=== PATIENT | male | born 1980 | race Caucasian/White ===

== ENCOUNTER 2020-07-03 09:25 | Emergency (ER) | payer OTHER, SELFPAY ==
--- NOTE | 2020-07-03 10:26 | ED.MALEGU ---
HPI - Male Genitourinary General Chief complaint: Urogenital-Male Stated complaint: URINATING BLOOD CLOTS Time Seen by Provider: 07/03/20 09:43 Source: patient Mode of arrival: ambulatory Limitations: no limitations History of Present Illness MD Complaint: other (hematuria) Onset (ago): day(s) (2) Duration: intermittent Severity: moderate Quality: burning Relieving factors: none Exacerbating factors: none Context: other (s/p laser ablation on 06/12, removal of cath on 06/16, did not receive DDAVP prior to procedure) Related Data Previous Rx's Medication Instructions Recorded levofloxacin 500 mg PO DAILY #6 tab 07/03/20 tranexamic acid 650 mg tablet 1,300 mg PO Q6H 5 Days #40 tab 07/03/20 Allergies Allergy/AdvReac Type Severity Reaction Status Date / Time cephalexin [From KEFLEX] Allergy Unknown HIVES Verified 07/03/20 10:37 latex [LATEX] Allergy Unknown RASH Verified 07/03/20 10:37 aspirin [ASA] AdvReac Unknown Verified 07/03/20 10:37 Review of Systems Review of Systems: Constitutional : No Weight loss, No Fever, No Chills ENT/Mouth : No sore throat, No Rhinorrhea Eyes: No Swelling, No Redness Cardiovascular : No Chest Pain, No SOB, NoEdema Respiratory : No Cough, No Sputum, No Wheezing Gastrointestinal : no pain, no vomiting, no diarrhea Genitourinary : positive Dysuria, positive Urinary Frequency, positive hematuria Musculoskeletal : No joint pain, No Myalgias, No Joint Swelling Skin : No Skin Lesions, No rash Neuro : No Weakness, No Numbness, No Dizziness, No Headache Psych : No Anxiety/Panic, No Depression Heme/Lymph: No Bruising, No Lymphadenopathy Endocrine : No Polyuria, No Polydipsia All other systems reviewed and are negative. PENDING SALE TO [facility] Past Medical History Medical History (Updated 07/03/20 @ 12:51 by Eliane Amado DO) Enlarged prostate Surgical History (Updated 07/03/20 @ 10:35 by Eliane Amado DO) History of cholecystectomy [place] teeth extracted Social History Social History (Updated 07/03/20 @ 10:35 by Eliane Amado DO) Alcohol intake: never Smoking Status: Never smoker Use of substances other than those prescribed or required for medical reasons: No Advance Directives: No Advance Directives Information Provided: Yes Physical Exam Vital Signs and I&O and Narrative: Vital Signs and I&O: Vital Signs Temp 98.8 F 07/03/20 10:37 Pulse 76 07/03/20 10:37 Resp 16 07/03/20 10:37 BP 154/81 H 07/03/20 10:37 Pulse Ox 97 07/03/20 10:37 Intake & Output 07/02/20 07/03/20 07/03/20 18:59 06:59 18:59 Intake Total 1000 / 1000 Balance 1000 / 1000 Weight 105.233 kg Intake: Intake, IV Amoun t 1000 / 1000 0.9 % Sodium C hloride 1,000 ml 1000 / 1000 @ 999 mls/hr I VCONT .Q1H1M ROHINI Rx#:[id number] Body Mass Index 33.3 Appearance: Alert. Oriented X3. No acute distress. Eyes: Pupils equal, round and reactive to light. ENT: Pharynx normal. Neck: Normal inspection. Neck supple. CVS: Normal heart rate and rhythm. Pulses normal. Respiratory: No respiratory distress. Breath sounds normal. Abdomen: Soft and nontender. Skin: Skin warm and dry. Normal skin color. Normal skin turgor. Extremities: No lower extremity edema. No lower extremity edema. Neuro: Oriented X 3. No motor deficit. No sensory deficit. Course Reevaluation(s) Reevaluation #1: Dr. Krishnamurthy aware - aware of CT scan and UA Time: 12:50 Reevaluation #2: per Dr. Childress hold tranexamic acid give DDVAP 0.3mg/kg follow up with Urology MDM - Male Genitourinary MDM Narrative Medical decision making narrative: patient with von willebrands prior to laser ablation did not receive DDAVP here with 2 days of hematuria and clots, will need labs, UA, IVF, CT scan for any mass or stone, dispo per results and findings Lab Data Result diagrams: 07/03/20 10:53 07/03/20 10:53 Labs: Lab Results 07/03/20 07/03/20 07/03/20 Range/Units 10:53 10:53 10:53 WBC 9.1 (4.8-10.8) X10*3/uL RBC 5.14 (4.60-5.80) X10*6/uL Hgb 15.4 (14.0-18.0) g/dl Hct 45.1 (42-52) % MCV 87.7 (80-98) fL MCH 30.0 (27.0-33.0) pg MCHC 34.1 (31.0-36.0) g/dl RDW 12.4 (11.0-16.0) % Plt Count 451 H (160-400) X10*3/uL MPV 10.0 (9.4-12.4) fL Immature Gran % (Auto) 0.3 (0.0-0.4) % Neut % (Auto) 63.3 (45-73) % Lymph % (Auto) 24.5 (20-40) % [place] % (Auto) 8.8 (2-11) % Eos % (Auto) 2.6 (0-4) % Baso % (Auto) 0.5 (0-2) % Neut # (Auto) 5.8 (2.0-8.3) X10*3/uL Lymph # (Auto) 2.2 (1.2-4.9) X10*3/uL [place] # (Auto) 0.8 (0.1-1.2) X10*3/uL Eos # (Auto) 0.2 (0.0-0.4) X10*3/uL Baso # (Auto) 0.1 (0.0-0.2) X10*3/uL Abs Immat Gran (auto) 0.03 (0.00-0.03) X10*3/uL Absolute Nucleated RBC 0.000 (0.0-0.012) X10*3/uL Nucleated RBC % (auto) 0.0 (0.0-0.2) /100WBC PT 12.8 (10.8-13.0) SEC INR 1.1 (0.9-1.1) APTT 42.0 H (24.1-38.0) SEC Sodium 139 (135-145) mmol/L Potassium 4.2 (3.3-5.1) mmol/l Chloride 108 (96-108) mmol/L Carbon Dioxide 22 (22-29) mmol/L Anion Gap 13 (12-20) BUN 14 (9-16) mg/dL Creatinine 0.85 (0.5-1.4) mg/dL Estim Creat Clear Calc 138.9 Estimated GFR > 60 Random Glucose 194 H (60-115) mg/dL Calcium 9.4 (8.4-10.2) mg/dL Magnesium 2.2 (1.6-2.6) mg/dL Total Bilirubin 0.6 (0.0-1.0) mg/dL Direct Bilirubin 0.2 (0.0-0.5) mg/dL AST 28 (5-37) U/L ALT 37 (0-40) U/L Alkaline Phosphatase 80 (39-117) U/L Total Protein 7.3 (6.5-8.0) g/dL Albumin 4.5 (3.5-5.0) g/dL Urine Color Urine Appearance Urine pH (5.0-8.0) Ur Specific [place] (1.005-1.025) Urine Protein (NEG-TRACE) MG/DL Urine Glucose (UA) (NEG) MG/DL Urine Ketones (NEG) MG/DL Urine Blood (NEG) Urine Nitrite (NEG) Ur Leukocyte Esterase (NEG) Urine RBC (0) /HPF Urine WBC (0-4) /HPF Ur Squamous Epith Cells /LPF Urine Bacteria /LPF Urine Mucus /LPF 07/03/20 Range/Units 11:19 WBC (4.8-10.8) X10*3/uL RBC (4.60-5.80) X10*6/uL Hgb (14.0-18.0) g/dl Hct (42-52) % MCV (80-98) fL MCH (27.0-33.0) pg MCHC (31.0-36.0) g/dl RDW (11.0-16.0) % Plt Count (160-400) X10*3/uL MPV (9.4-12.4) fL Immature Gran % (Auto) (0.0-0.4) % Neut % (Auto) (45-73) % Lymph % (Auto) (20-40) % [place] % (Auto) (2-11) % Eos % (Auto) (0-4) % Baso % (Auto) (0-2) % Neut # (Auto) (2.0-8.3) X10*3/uL Lymph # (Auto) (1.2-4.9) X10*3/uL [place] # (Auto) (0.1-1.2) X10*3/uL Eos # (Auto) (0.0-0.4) X10*3/uL Baso # (Auto) (0.0-0.2) X10*3/uL Abs Immat Gran (auto) (0.00-0.03) X10*3/uL Absolute Nucleated RBC (0.0-0.012) X10*3/uL Nucleated RBC % (auto) (0.0-0.2) /100WBC PT (10.8-13.0) SEC INR (0.9-1.1) APTT (24.1-38.0) SEC Sodium (135-145) mmol/L Potassium (3.3-5.1) mmol/l Chloride (96-108) mmol/L Carbon Dioxide (22-29) mmol/L Anion Gap (12-20) BUN (9-16) mg/dL Creatinine (0.5-1.4) mg/dL Estim Creat Clear Calc Estimated GFR Random Glucose (60-115) mg/dL Calcium (8.4-10.2) mg/dL Magnesium (1.6-2.6) mg/dL Total Bilirubin (0.0-1.0) mg/dL Direct Bilirubin (0.0-0.5) mg/dL AST (5-37) U/L ALT (0-40) U/L Alkaline Phosphatase (39-117) U/L Total Protein (6.5-8.0) g/dL Albumin (3.5-5.0) g/dL Urine Color RED Urine Appearance TURBID Urine pH 6.5 (5.0-8.0) Ur Specific [place] 1.025 (1.005-1.025) Urine Protein 3+ H (NEG-TRACE) MG/DL Urine Glucose (UA) NEG (NEG) MG/DL Urine Ketones 5 (NEG) MG/DL Urine Blood 3+ H (NEG) Urine Nitrite POS H (NEG) Ur Leukocyte Esterase TRACE H (NEG) Urine RBC TNTC H (0) /HPF Urine WBC 30-49 H (0-4) /HPF Ur Squamous Epith Cells NONE /LPF Urine Bacteria NONE /LPF Urine Mucus 3+ /LPF Discharge Plan Discharge Clinical Impression: Von Willebrand disease, Hematuria, Urinary tract infection Patient Disposition: Home, Self-Care Instructions: Urinary Tract Infection in Men (ED), Hematuria (ED) Additional Instructions: if you cannot void or have severe pain please return immediately, do not exercise aggressively while on antibiotics Prescriptions: New levofloxacin 500 mg tablet 500 mg PO DAILY Qty: 6 RF: 0 No Action tranexamic acid 650 mg tablet 1,300 mg PO Q6H 5 Days Qty: 40 RF: 0 Referrals: Humberto Nelson III, MD [Physician] - 2 days (call for next appointment) Stand Alone Forms: Work/School Release
--- NOTE | 2020-07-03 10:32 | CT_ITS ---
EXAMINATION: CT ABDOMEN AND PELVIS WITHOUT CONTRAST CLINICAL INFORMATION: Hematuria COMPARISON: None TECHNIQUE: Multidetector volumetric imaging was performed from the superior aspect of the liver through the pubic symphysis. Sagittal and coronal reformatted images were obtained on the technologist's workstation. This CT examination was performed using dose optimization techniques as appropriate, variously including the following: *Automated exposure control *Adjustment of mA and/or kV according to patient size (this includes techniques or standardized protocols for targeted exams where dose is matched to indication/reason for exam; i.e. extremities or head) *Use of iterative reconstruction technique DLP: 805 mGy-cm FINDINGS: LUNG BASES: The visualized lung bases are unremarkable. LIVER, GALLBLADDER, AND BILIARY TREE: No focal hepatic lesion or biliary ductal dilatation is present. Gallbladder is not visualized. Question prior cholecystectomy. PANCREAS: Unremarkable. SPLEEN: Unremarkable. ADRENAL GLANDS: Unremarkable. KIDNEYS AND URETERS: The kidneys are normal in size, shape, and attenuation. No hydronephrosis, hydroureter, or calculi seen. No perinephric stranding. No suspicious lesions identified in this noncontrast study. BLADDER: Irregular soft tissue mass-like density, Hounsfield measurements 51, with ill-defined margins, along the posterior aspect of the bladder. This measures approximately 2.9 cm AP, 5.1 cm transverse, 3.0 cm craniocaudal. GASTROINTESTINAL TRACT: The small and large bowel are unremarkable. The appendix is unremarkable. Stomach contains luminal contents limiting evaluation. No free fluid. No free air. ABDOMINAL WALL: Small fat-containing umbilical hernia. LYMPH NODES: No pathologically enlarged lymph nodes are seen. VASCULAR: Normal caliber aorta. PELVIC VISCERA: Prostate measures 4.0 cm transverse. OSSEOUS STRUCTURES: No acute or suspicious osseous abnormality. IMPRESSION: Soft tissue density with irregular ill-defined margins within the posterior aspect of the urinary bladder. This measures approximately 2.9 x 5.1 x 3.0 cm. Differential consideration includes neoplasm. Intraluminal contents from other etiologies such as blood products, complex contents can potentially have this appearance. Further evaluation is needed.
[2020-07-03 10:37] VITALS: BP 154/81; PULSE 76; RESP 16; TEMP 37.1; O2SAT 97; BMI 33.3
[2020-07-03 10:58] LABS: MANUAL DIFF FLAG NO
[2020-07-03 11:02] LABS: Basophils Absolute Auto 0.1 X10*3/uL (0.0-0.2); Basophils Percent Auto 0.5 % (0-2); Eosinophils Absolute Auto 0.2 X10*3/uL (0.0-0.4); Eosinophils Percent Auto 2.6 % (0-4); Hematocrit 45.1 % (42-52); Hemoglobin 15.4 g/dl (14.0-18.0); Imm Gran Abs Auto 0.03 X10*3/uL (0.00-0.03); Imm Gran Pct Auto 0.3 % (0.0-0.4); Lymphocytes Absolute Auto 2.2 X10*3/uL (1.2-4.9); Lymphocytes Percent Auto 24.5 % (20-40); Mean Corpuscular HGB Conc 34.1 g/dl (31.0-36.0); Mean Corpuscular Volume 87.7 fL (80-98); Monocytes Absolute Auto 0.8 X10*3/uL (0.1-1.2); Monocytes Percent Auto 8.8 % (2-11); Neutrophils Absolute Auto 5.8 X10*3/uL (2.0-8.3); Neutrophils Percent Auto 63.3 % (45-73); Platelet Count 451 X10*3/uL (160-400); Red Blood Count 5.14 X10*6/uL (4.60-5.80); Red Cell Distribution Width 12.4 % (11.0-16.0); White Blood Count 9.1 X10*3/uL (4.8-10.8)
[2020-07-03 11:12] LABS: INTERNATIONAL NORM RATIO 1.1 (0.9-1.1); Prothrombin Time 12.8 SEC (10.8-13.0)
[2020-07-03] MEDS: 0.9 % Sodium Chloride 1,000 ML 999 ML IVCONT (11:17)
[2020-07-03 11:40] LABS: Alanine Aminotransferase 37 U/L (0-40); Albumin Level 4.5 g/dL (3.5-5.0); Alkaline Phosphatase 80 U/L (39-117); Anion Gap 13 (12-20); Aspartate Amino Transferase 28 U/L (5-37); Bilirubin Direct 0.2 mg/dL (0.0-0.5); Bilirubin Total 0.6 mg/dL (0.0-1.0); Blood Urea Nitrogen 14 mg/dL (9-16); Calcium 9.4 mg/dL (8.4-10.2); Carbon Dioxide 22 mmol/L (22-29); Chloride 108 mmol/L (96-108); Creatinine Clr Calc Pharmacy 138.9; Estimated Glomerular Filt Rate > 60; Glucose Random 194 mg/dL (60-115); Magnesium 2.2 mg/dL (1.6-2.6); Potassium 4.2 mmol/l (3.3-5.1); Sodium 139 mmol/L (135-145); Total Protein 7.3 g/dL (6.5-8.0)
[2020-07-03 11:40] LABS: Glucose Urine UA NEG (NEG); Leukocyte Esterase Urine TRACE (NEG); Nitrite Urine POS (NEG); Specific Gravity - Urine 1.025 (1.005-1.025); Urine Blood 3+ (NEG); Urine Ketones 5 MG/DL (NEG); Urine Protein 3+ MG/DL (NEG-TRACE)
[2020-07-03 11:47] LABS: Appearance Urine TURBID; Color Urine RED
[2020-07-03 11:48] LABS: PH 6.5 (5.0-8.0)
[2020-07-03 12:00] VITALS: BP 128/69; PULSE 64
[2020-07-03 12:01] LABS: RBC Urine TNTC /HPF (0); WBC Urine 30-49 /HPF (0-4)
[2020-07-03 12:02] LABS: Mucus Urine 3+ /LPF
[2020-07-03] MEDS: levoFLOXacin/D5W 500 MG/100 ML PIGGYBACK 100 MG IV (12:40)
[2020-07-03 13:09] LABS: Lactic Acid 1.4 mmol/L (0.5-2.0)
[2020-07-03 14:00] VITALS: BP 125/73; PULSE 73
[2020-07-03] MEDS: Desmopressin Acetate 20 MCG in 0.9 % Sodium Chloride 50 ML 100 MCG IV (14:11)
== END 2020-07-03 15:37 | disposition home or self-care (01) ==
PROVIDERS: Emergency Provider Emergency Medicine; PCP Family Medicine
DX: D68.0 Von Willebrand disease (principal); N39.0 Urinary tract infection, site not specified; R31.9 Hematuria, unspecified
CPT/HCPCS: 36415; 74176; 80048; 80076; 81001; 83605; 83735; 85025; 85610; 85730; 87040; 87086; 96361; 96365; 96366; 96367; 99284; J1956; J2597

== ENCOUNTER → 2020-07-05 13:26 | Outpatient (BNVA) | payer OTHER, SELFPAY | PROVIDERS: PCP Family Medicine; Visit Provider Urology | DX: N40.1 Benign prostatic hyperplasia with lower urinary tract symptoms (principal); N13.8 Other obstructive and reflux uropathy; N39.41 Urge incontinence; Z79.899 Other long term (current) drug therapy | CPT/HCPCS: 51798; 99024 ==

== ENCOUNTER → 2024-05-25 14:17 | Outpatient (RCR) | payer OTHER, SELFPAY ==
[2020-07-19 10:35] VITALS: BP 124/65; PULSE 76; RESP 18; TEMP 36.6; O2SAT 97
[2020-07-19 10:37] VITALS: BMI 33.2
[2020-07-19 11:51] LABS: MANUAL DIFF FLAG NO
[2020-07-19 12:02] LABS: Basophils Absolute Auto 0.1 X10*3/uL (0.0-0.2); Basophils Percent Auto 0.7 % (0-2); Eosinophils Absolute Auto 0.4 X10*3/uL (0.0-0.4); Eosinophils Percent Auto 4.7 % (0-4); Hematocrit 40.2 % (42-52); Hemoglobin 13.2 g/dl (14.0-18.0); Imm Gran Abs Auto 0.01 X10*3/uL (0.00-0.03); Imm Gran Pct Auto 0.1 % (0.0-0.4); Lymphocytes Absolute Auto 2.1 X10*3/uL (1.2-4.9); Lymphocytes Percent Auto 28.5 % (20-40); Mean Corpuscular HGB Conc 32.8 g/dl (31.0-36.0); Mean Corpuscular Hemoglobin 29.7 pg (27.0-33.0); Mean Corpuscular Volume 90.3 fL (80-98); Mean Platelet Volume 10.1 fL (9.4-12.4); Monocytes Absolute Auto 0.7 X10*3/uL (0.1-1.2); Monocytes Percent Auto 9.6 % (2-11); Neutrophils Absolute Auto 4.2 X10*3/uL (2.0-8.3); Neutrophils Percent Auto 56.4 % (45-73); Platelet Count 407 X10*3/uL (160-400); Red Blood Count 4.45 X10*6/uL (4.60-5.80); Red Cell Distribution Width 13.1 % (11.0-16.0); White Blood Count 7.4 X10*3/uL (4.8-10.8)
--- NOTE | 2020-07-19 12:27 | P.CNHO_ITS ---
Subjective - Subjective Chief complaint: Consult for hematuria. History of von Willebrand's disease. Patient: new to practice Requesting Physician: Guera Ferro. Primary Care Provider: Yenny Ferro MD Medical Summary: DIAGNOSIS: 1. HEMATURIA. 2. VON WILLEBRAND'S DISEASE. HPI - Consult Narrative Reason for consult: HEMATURIA. VON WILLEBRANDS. Narrative: Johann Son is a 40 year old man who initially presented to Dr. Garcia for urge incontinence. He was diagnosed with BPH. He had a Laser procedure done on 06/12. According to him he did mention a history of BPH and that he required DDAVP pr ior to procedures. He thought he received it. He then developed hematuria. he had the Haq in for the 1st week or so. he thought that was normal. However a couple of weeks ago he noticed that the bleeding worse persistent and he was passing big clots. On July 03 he went to the emergency room. Here his labs revealed: CBC: WBC 9.1/HGB 15.4/HCT 45/PLT 451. UA revealed 3+ blood. The case was discussed with Dr. Childress. He was given a dose of DDAVP. He was sent home on tranexamic acid 1300 mg q.6 hours for 5 days. With that the bleeding did slow down. However he is worried because his med ran out and the insurance would not cover it. He tells me a at the age of 4 he threw up blood. Subsequently he had nose bleeds through adolescent years. He was then diagnosed with von Willebrand's disease. Since then he is supposed to get DDAVP prior to any procedures. His mom was checked and she was positive. Review of Systems - Constitutional Reports no additional constitutional complaints, Reports fatigue - Eyes Reports no additional eye complaints - ENT Reports no additional ear, nose, mouth, and throat complaints - Cardiovascular Reports no additional cardiovascular complaints, Reports shortness of breath - Respiratory Reports no additional respiratory complaints, Reports dyspnea - Gastrointestinal Reports no additional gastrointestinal complaints, Reports abdominal pain - Genitourinary Genitourinary: Reports no additional male genitourinary complaints, Denies blood in urine - Musculoskeletal Reports no additional musculoskeletal complaints, Reports joint pain - Integumentary/Breasts Skin/Breast: Reports no additional skin complaints - Neurologic Reports no additional neurologic complaints - Endocrine Reports no additional endocrine complaints - Hematologic/Lymphatic Reports no additional hematologic/lymphatic complaints - Allergic/Immunologic Reports no additional allergic/immunologic complaints [facility] Medical History: Medical History (Last Updated 07/22/20 @ 15:42 by Daja Biggs MD) Enlarged prostate Hematuria Patient : No Surgical History: Surgical History (Last Updated 07/22/20 @ 15:42 by Daja Biggs MD) History of cholecystectomy [place] teeth extracted Home Medications and Allergies Allergies Allergy/AdvReac Type Severity Reaction Status Date / Time cephalexin [From KEFLEX] Allergy Unknown HIVES Verified 07/03/20 10:37 latex [LATEX] Allergy Unknown RASH Verified 07/03/20 10:37 aspirin [ASA] AdvReac Unknown Verified 07/03/20 10:37 Physical Exam Vital signs: Vital Signs Temp 97.8 F 07/19/20 10:35 Pulse 76 07/19/20 10:35 Resp 18 07/19/20 10:35 BP 124/65 07/19/20 10:35 Pulse Ox 97 07/19/20 10:35 Intake & Output 07/18/20 07/19/20 07/19/20 18:59 06:59 18:59 Other: Weight 105 kg Weight 105 kg - Constitutional Present: mild distress - Routine HEENT Exam Head: Present: normal inspection ENT: Present: mucous membranes moist - Routine Neck Exam Present: supple - Routine Respiratory Exam Present: CTAB - Routine Cardiovascular Exam Cardiovascular: Present: RRR, S1, S2 - Routine Abdominal Exam Present: soft, nontender - Routine Extremities Exam Present: nontender - Routine Skin Exam Present: intact - Routine Neurological Exam Present: alert, oriented X3, moving all extremities - Detailed Neurological Exam: Coma Scale Eye Opening: Spontaneous (4) Verbal Response: Oriented (5) - Routine Psychiatric Exam Present: agitated Hem/Onc Consult Result - Labs CBC & Chem 7: 07/19/20 11:35 07/19/20 11:35 Labs: Short CBC 07/19/20 Range/Units 11:35 WBC 7.4 (4.8-10.8) X10*3/uL Hgb 13.2 L (14.0-18.0) g/dl Hct 40.2 L (42-52) % Plt Count 407 H (160-400) X10*3/uL Assessment and Plan (1) Von Willebrands disease Status: Acute This is a 40-year-old gentleman with a history of von Willebrand's disease. He underwent laser procedure on his prostate on June 12, without D DDAVP cover. Subsequently had issues with hematuria. this persisted and actually got got worse to couple of weeks ago, with him passing dark red big blood clots. He came to the emergency room July 03 was given a dose of DDAVP. tranexamic acid was ordered. He took a 5 days course. with that the bleeding was controlled. However he is worried, what if the bleeding started again since he does not have any more. PLAN: I called his pharmacy. He can olive picker the prescription tommorrow. I told him he can call us in case he develops hematuria, so I can arrange for the DDaVP. He will keep me posted. Meanwhile I will check the Von Willebrands Profile, to confirm the diagnosis and see what type he has. he will return in one month for a follow up visit. Thanks, Addendum: PT: 12.4. PTT: 30.8. RCA: <20. F VIII Activity: 51. F VIII Antigen:32. CC: Dr. Ferro. Dr. Garcia. (2) Von Willebrand disease Status: Acute
[2020-07-19 12:33] LABS: Alanine Aminotransferase 34 U/L (0-40); Albumin Level 4.3 g/dL (3.5-5.0); Alkaline Phosphatase 75 U/L (39-117); Anion Gap 11 (12-20); Aspartate Amino Transferase 19 U/L (5-37); Bilirubin Total 0.5 mg/dL (0.0-1.0); Blood Urea Nitrogen 15 mg/dL (9-16); Calcium 9.2 mg/dL (8.4-10.2); Carbon Dioxide 25 mmol/L (22-29); Chloride 109 mmol/L (96-108); Creatinine Clr Calc Pharmacy 147.4; Estimated Glomerular Filt Rate > 60; Glucose Random 117 mg/dL (60-115); Potassium 4.4 mmol/l (3.3-5.1); Sodium 141 mmol/L (135-145); Total Protein 6.6 g/dL (6.5-8.0)
[2020-07-19 12:35] LABS: Prothrombin Time 12.4 SEC (10.8-13.0)
[2020-07-19 12:38] LABS: Partial Thromboplastin Time 39.8 SEC (24.1-38.0)
--- NOTE | 2020-07-19 13:58 | MHC.HEMONC ---
pt here for Consultation with Dr Biggs re: bleeding post procedure (laser ablation of the prostate). He has h/o Von Willebrands. Labs ordered and to be reviewed by Dr Biggs. He will f/u in August. Marsha BAILON to work on PA for his Tranexmic Acid.
[2020-07-20 12:37] LABS: Factor VIII Activity 51 % normal (50-180); Ristocetin Cofactor <20 % NORMAL (42-200); Von Willebrand Factor Antigen 32 % (50-217)
--- NOTE | 2020-08-30 08:59 | P.PNHO_ITS ---
Medical Summary - Medical Summary Date of Service: 08/30/20 Medical Summary: DIAGNOSIS: 1. HEMATURIA. 2. VON WILLEBRAND'S DISEASE. Interval History Interval history: Johann Son is a 40 year old man who initially presented to Dr. Garcia for urge incontinence. He was diagnosed with BPH. He had a Laser procedure done on 06/12. According to him he did mention a history of BPH and that he required DDAVP prior to procedures. He thought he received it. He then developed hematuria. he had the Haq in for the 1st week or so. he thought that was normal. However a couple of weeks ago he noticed that the bleeding worse persistent and he was passing big clots. On July 03 he went to the emergency room. Here his labs revealed: CBC: WBC 9.1/HGB 15.4/HCT 45/PLT 451. UA revealed 3+ blood. The case was discussed with Dr. Childress. He was given a dose of DDAVP. He was sent home on tranexamic acid 1300 mg q.6 hours for 5 days. With that the bleeding did slow down. However he is worried because his med ran out and the insurance would not cover it. He tells me a at the age of 4 he threw up blood. Subsequently he had nose bleeds through adolescent years. He was then diagnosed with von Willebrand's disease. Since then he is supposed to get DDAVP prior to any procedures. His mom was checked and she was positive. Review of Systems - Neurologic Reports no additional neurologic complaints PMFSH Medical History: Medical History (Last Updated 07/22/20 @ 15:42 by Daja Biggs MD) Enlarged prostate Hematuria Surgical History: Surgical History (Last Updated 07/22/20 @ 15:42 by Daja Biggs MD) History of cholecystectomy [place] teeth extracted Home Medications and Allergies Home Medications Medication Instructions Recorded Confirmed Type atorvastatin 80 mg PO DAILY 08/30/20 08/30/20 History cholecalciferol (vitamin D3) 100 mcg PO DAILY 08/30/20 08/30/20 History [Vitamin D3] dulaglutide [Trulicity] 0.75 mg SUBCUT QWEEK 08/30/20 08/30/20 History metformin 1,000 mg PO BID 08/30/20 08/30/20 History oxybutynin chloride 15 mg PO DAILY 08/30/20 08/30/20 History tranexamic acid 1 mg PO DAILY 08/30/20 08/30/20 History Allergies Allergy/AdvReac Type Severity Reaction Status Date / Time cephalexin [From KEFLEX] Allergy Unknown HIVES Verified 08/30/20 08:53 latex [LATEX] Allergy Unknown RASH Verified 08/30/20 08:53 aspirin [ASA] AdvReac Unknown Verified 08/30/20 08:53 Exam Vital signs: Vital Signs Temp 97.8 F 07/19/20 10:35 Pulse 76 07/19/20 10:35 Resp 18 07/19/20 10:35 BP 124/65 07/19/20 10:35 Pulse Ox 97 07/19/20 10:35 Weight 105 kg Body Mass Index 33.2 - Constitutional Present: mild distress - Routine HEENT Exam Head: Present: normal inspection - Routine Respiratory Exam Present: CTAB - Routine Cardiovascular Exam Cardiovascular: Present: RRR, S1, S2 - Routine Abdominal Exam Present: soft, nontender - Routine Extremities Exam Present: nontender - Routine Skin Exam Present: intact - Routine Neurological Exam Present: alert, oriented X3, moving all extremities - Detailed Neurological Exam: Coma Scale Eye Opening: Spontaneous (4) Data - Labs CBC & Chem 7: 07/19/20 11:35 07/19/20 11:35 Labs: 07/19/20 11:35 Complete Blood Count Auto Diff Routine Comprehensive Met. Panel Routine Factor 8 Prof (von Willebrand) Routine PTT [Partial Thromboplastin Time] Routine Prothrombin Time INR Routine Laboratory Last Values WBC 7.4 X10*3/uL (4.8-10.8) 07/19/20 11:35 RBC 4.45 X10*6/uL (4.60-5.80) L 07/19/20 11:35 Hgb 13.2 g/dl (14.0-18.0) L 07/19/20 11:35 Hct 40.2 % (42-52) L 07/19/20 11:35 MCV 90.3 fL (80-98) 07/19/20 11:35 MCH 29.7 pg (27.0-33.0) 07/19/20 11:35 MCHC 32.8 g/dl (31.0-36.0) 07/19/20 11:35 RDW 13.1 % (11.0-16.0) 07/19/20 11:35 Plt Count 407 X10*3/uL (160-400) H 07/19/20 11:35 MPV 10.1 fL (9.4-12.4) 07/19/20 11:35 Immature Gran % (Auto) 0.1 % (0.0-0.4) 07/19/20 11:35 Neut % (Auto) 56.4 % (45-73) 07/19/20 11:35 Lymph % (Auto) 28.5 % (20-40) 07/19/20 11:35 [place] % (Auto) 9.6 % (2-11) 07/19/20 11:35 Eos % (Auto) 4.7 % (0-4) H 07/19/20 11:35 Baso % (Auto) 0.7 % (0-2) 07/19/20 11:35 Lymph # (Auto) 2.1 X10*3/uL (1.2-4.9) 07/19/20 11:35 [place] # (Auto) 0.7 X10*3/uL (0.1-1.2) 07/19/20 11:35 Eos # (Auto) 0.4 X10*3/uL (0.0-0.4) 07/19/20 11:35 Baso # (Auto) 0.1 X10*3/uL (0.0-0.2) 07/19/20 11:35 Abs Immat Gran (auto) 0.01 X10*3/uL (0.00-0.03) 07/19/20 11:35 Absolute Neuts (auto) 4.2 X10*3/uL (2.0-8.3) 07/19/20 11:35 Absolute Nucleated RBC 0.000 X10*3/uL (0.0-0.012) 07/19/20 11:35 Nucleated RBC % (auto) 0.0 /100WBC (0.0-0.2) 07/19/20 11:35 PT 12.4 SEC (10.8-13.0) 07/19/20 11:35 INR 1.0 (0.9-1.1) 07/19/20 11:35 APTT 39.8 SEC (24.1-38.0) H 07/19/20 11:35 vWF VIII Activity 51 % normal (50-180) 07/19/20 11:35 von Willebrand Antigen 32 % (50-217) L 07/19/20 11:35 vWF Multimeric Antigen see note 07/19/20 11:35 Ristocetin Cofac Assay <20 % NORMAL (42-200) L 07/19/20 11:35 Sodium 141 mmol/L (135-145) 07/19/20 11:35 Potassium 4.4 mmol/l (3.3-5.1) 07/19/20 11:35 Chloride 109 mmol/L (96-108) H 07/19/20 11:35 Carbon Dioxide 25 mmol/L (22-29) 07/19/20 11:35 Anion Gap 11 (12-20) L 07/19/20 11:35 BUN 15 mg/dL (9-16) 07/19/20 11:35 Creatinine 0.80 mg/dL (0.5-1.4) 07/19/20 11:35 Estim Creat Clear Calc 147.4 07/19/20 11:35 Estimated GFR > 60 07/19/20 11:35 Random Glucose 117 mg/dL (60-115) H D 07/19/20 11:35 Calcium 9.2 mg/dL (8.4-10.2) 07/19/20 11:35 Total Bilirubin 0.5 mg/dL (0.0-1.0) 07/19/20 11:35 AST 19 U/L (5-37) 07/19/20 11:35 ALT 34 U/L (0-40) 07/19/20 11:35 Alkaline Phosphatase 75 U/L (39-117) 07/19/20 11:35 Total Protein 6.6 g/dL (6.5-8.0) 07/19/20 11:35 Albumin 4.3 g/dL (3.5-5.0) 07/19/20 11:35 Progress Note: A/P (1) Von Willebrands disease Status: Acute Assessment and plan: This is a 40-year-old gentleman with a history of von Willebrand's disease. He underwent laser procedure on his prostate on June 12, without D DDAVP cover. Subsequently had issues with hematuria. this persisted and actually got got worse to couple of weeks ago, with him passing dark red big blood clots. He came to the emergency room July 03 was given a dose of DDAVP. tranexamic acid was ordered. He took a 5 days course. with that the bleeding was controlled. However he is worried, what if the bleeding started again since he does not have any more. PLAN: I called his pharmacy. He can pickling solution maker the prescription tommorrow. I told him he can call us in case he develops hematuria, so I can arrange for the DDaVP. He will keep me posted. Meanwhile I will check the Von Willebrands Profile, to confirm the diagnosis and see what type he has. he will return in one month for a follow up visit. Thanks, Addendum: PT: 12.4. PTT: 30.8. RCA: <20. F VIII Activity: 51. F VIII Antigen:32. CC: Dr. Ferro. Dr. Garcia. (2) Von Willebrand disease Status: Acute - Time Spent With Patient Total time spent is greater than 50% in coordination of care (as documented) at patient's floor/unit and/or counseling patient:
--- NOTE | 2020-08-30 09:06 | P.PNHO_ITS ---
[facility] Telehealth - Telehealth Location of Provider rendering services: HEM/[facility] OFFICE. Patient Identification confirmed using: Name, : Yes Patient verbally consented to billing insurance company: Yes Patient informed of any privacy concerns related to visit: Yes Medical Summary - Medical Summary Date of Service: 08/30/20 Medical Summary: DIAGNOSIS: 1. HEMATURIA. 2. VON WILLEBRAND'S DISEASE. Interval History Interval history: Johann Son is a 40 year old man who initially presented to Dr. Garcia for urge incontinence. He was diagnosed with BPH. He had a Laser procedure done on 06/12. According to him he did mention a history of BPH and that he required DDAVP prior to procedures. He thought he received it. He then developed hematuria. He had the Haq in for the 1st week or so. He thought that was normal. However a couple of weeks ago he noticed that the bleeding worse persistent and he was passing big clots. On July 03 he went to the emergency room. Here his labs revealed: CBC: WBC 9.1/HGB 15.4/HCT 45/PLT 451. UA revealed 3+ blood. The case was discussed with Dr. Childress. He was given a dose of DDAVP. He was sent home on Tranexamic acid 1300 mg q.6 hours for 5 days. With that the bleeding did slow down. However he is worried because his med ran out and the insurance would not cover it. I had a tele health visit with him today. He tells me that he still has the hematuria. He is okay for one day and then it starts back up. He has been passing clots. He denies any abdominal nor flank pain. No dysuria. He denies any fever nor chills. No chest pain or trouble breathing. No abdominal pain nausea vomiting heartburn indigestion. His bowels are working without any gross blood in it. He enjoys a good appetite. He has gained weight. He is in good spirits. Rest of the review of systems is unremarkable. His insurance has been covering only 5 days of the Tranexamic Acid. The b leeding would slow down but then would start back up after the 5 days are over. PREVIOUS HISTORY: He tells me a at the age of 4 he threw up blood. Subsequently he had nose bleeds through adolescent years. He was then diagnosed with von Willebrand's disease. Since then he is supposed to get DDAVP prior to any procedures. His mom was checked and she was positive. Review of Systems - Constitutional Reports no additional constitutional complaints, Reports fatigue, Denies fever(s) - Eyes Reports no additional eye complaints - ENT Reports no additional ear, nose, mouth, and throat complaints - Cardiovascular Reports no additional cardiovascular complaints - Respiratory Reports no additional respiratory complaints - Gastrointestinal Reports no additional gastrointestinal complaints - Genitourinary Genitourinary: Reports no additional male genitourinary complaints Comments: hematuria with passage of clots - Musculoskeletal Reports no additional musculoskeletal complaints, Reports body aches, Reports joint pain - Integumentary/Breasts Skin/Breast: Reports no additional skin complaints - Neurologic Reports no additional neurologic complaints - Psychiatric Reports no additional psychiatric complaints, Reports anxiety - Endocrine Reports no additional endocrine complaints - Hematologic/Lymphatic Reports no additional hematologic/lymphatic complaints - Allergic/Immunologic Reports no additional allergic/immunologic complaints Home Medications and Allergies Home Medications Medication Instructions Recorded Confirmed Type atorvastatin 80 mg PO DAILY 08/30/20 08/30/20 History cholecalciferol (vitamin D3) 100 mcg PO DAILY 08/30/20 08/30/20 History [Vitamin D3] dulaglutide [Trulicity] 0.75 mg SUBCUT QWEEK 08/30/20 08/30/20 History famotidine 40 mg PO BID 08/30/20 08/30/20 History metformin 1,000 mg PO BID 08/30/20 08/30/20 History oxybutynin chloride 15 mg PO DAILY 08/30/20 08/30/20 History tranexamic acid 1 mg PO DAILY 08/30/20 08/30/20 History Allergies Allergy/AdvReac Type Severity Reaction Status Date / Time cephalexin [From KEFLEX] Allergy Unknown HIVES Verified 08/30/20 08:53 latex [LATEX] Allergy Unknown RASH Verified 08/30/20 08:53 aspirin [ASA] AdvReac Unknown Verified 08/30/20 08:53 Exam Vital signs: Vital Signs Temp 97.8 F 07/19/20 10:35 Pulse 76 07/19/20 10:35 Resp 18 07/19/20 10:35 BP 124/65 07/19/20 10:35 Pulse Ox 97 07/19/20 10:35 Weight 105 kg Body Mass Index 33.2 - Constitutional Present: mild distress - Routine HEENT Exam Head: Present: normal inspection - Routine Respiratory Exam Present: CTAB - Routine Cardiovascular Exam Cardiovascular: Present: RRR, S1, S2 - Routine Abdominal Exam Present: soft, nontender - Routine Extremities Exam Present: nontender - Routine Skin Exam Present: intact - Routine Neurological Exam Present: alert, oriented X3, moving all extremities - Detailed Neurological Exam: Coma Scale Eye Opening: Spontaneous (4) Data - Labs CBC & Chem 7: 07/19/20 11:35 07/19/20 11:35 Labs: 07/19/20 11:35 Complete Blood Count Auto Diff Routine Comprehensive Met. Panel Routine Factor 8 Prof (von Willebrand) Routine PTT [Partial Thromboplastin Time] Routine Prothrombin Time INR Routine Laboratory Last Values WBC 7.4 X10*3/uL (4.8-10.8) 07/19/20 11:35 RBC 4.45 X10*6/uL (4.60-5.80) L 07/19/20 11:35 Hgb 13.2 g/dl (14.0-18.0) L 07/19/20 11:35 Hct 40.2 % (42-52) L 07/19/20 11:35 MCV 90.3 fL (80-98) 07/19/20 11:35 MCH 29.7 pg (27.0-33.0) 07/19/20 11:35 MCHC 32.8 g/dl (31.0-36.0) 07/19/20 11:35 RDW 13.1 % (11.0-16.0) 07/19/20 11:35 Plt Count 407 X10*3/uL (160-400) H 07/19/20 11:35 MPV 10.1 fL (9.4-12.4) 07/19/20 11:35 Immature Gran % (Auto) 0.1 % (0.0-0.4) 07/19/20 11:35 Neut % (Auto) 56.4 % (45-73) 07/19/20 11:35 Lymph % (Auto) 28.5 % (20-40) 07/19/20 11:35 Hodgeman % (Auto) 9.6 % (2-11) 07/19/20 11:35 Eos % (Auto) 4.7 % (0-4) H 07/19/20 11:35 Baso % (Auto) 0.7 % (0-2) 07/19/20 11:35 Lymph # (Auto) 2.1 X10*3/uL (1.2-4.9) 07/19/20 11:35 Hodgeman # (Auto) 0.7 X10*3/uL (0.1-1.2) 07/19/20 11:35 Eos # (Auto) 0.4 X10*3/uL (0.0-0.4) 07/19/20 11:35 Baso # (Auto) 0.1 X10*3/uL (0.0-0.2) 07/19/20 11:35 Abs Immat Gran (auto) 0.01 X10*3/uL (0.00-0.03) 07/19/20 11:35 Absolute Neuts (auto) 4.2 X10*3/uL (2.0-8.3) 07/19/20 11:35 Absolute Nucleated RBC 0.000 X10*3/uL (0.0-0.012) 07/19/20 11:35 Nucleated RBC % (auto) 0.0 /100WBC (0.0-0.2) 07/19/20 11:35 PT 12.4 SEC (10.8-13.0) 07/19/20 11:35 INR 1.0 (0.9-1.1) 07/19/20 11:35 APTT 39.8 SEC (24.1-38.0) H 07/19/20 11:35 vWF VIII Activity 51 % normal (50-180) 07/19/20 11:35 von Willebrand Antigen 32 % (50-217) L 07/19/20 11:35 vWF Multimeric Antigen see note 07/19/20 11:35 Ristocetin Cofac Assay <20 % NORMAL (42-200) L 07/19/20 11:35 Sodium 141 mmol/L (135-145) 07/19/20 11:35 Potassium 4.4 mmol/l (3.3-5.1) 07/19/20 11:35 Chloride 109 mmol/L (96-108) H 07/19/20 11:35 Carbon Dioxide 25 mmol/L (22-29) 07/19/20 11:35 Anion Gap 11 (12-20) L 07/19/20 11:35 BUN 15 mg/dL (9-16) 07/19/20 11:35 Creatinine 0.80 mg/dL (0.5-1.4) 07/19/20 11:35 Estim Creat Clear Calc 147.4 07/19/20 11:35 Estimated GFR > 60 07/19/20 11:35 Random Glucose 117 mg/dL (60-115) H D 07/19/20 11:35 Calcium 9.2 mg/dL (8.4-10.2) 07/19/20 11:35 Total Bilirubin 0.5 mg/dL (0.0-1.0) 07/19/20 11:35 AST 19 U/L (5-37) 07/19/20 11:35 ALT 34 U/L (0-40) 07/19/20 11:35 Alkaline Phosphatase 75 U/L (39-117) 07/19/20 11:35 Total Protein 6.6 g/dL (6.5-8.0) 07/19/20 11:35 Albumin 4.3 g/dL (3.5-5.0) 07/19/20 11:35 Progress Note: A/P (1) Von Willebrands disease Status: Acute Assessment and plan: PT: 12.4. PTT: 30.8. RCA: <20. F VIII Activity: 51. F VIII Antigen:32. This is a 40-year-old gentleman with a history of von Willebrand's disease. He underwent laser procedure on his prostate on June 12, without D DDAVP cover. Subsequently had issues with hematuria. This persisted and actually got got worse to couple of weeks ago, with him passing dark red big blood clots. He came to the emergency room July 03 was given a dose of DDAVP. Tranexamic acid was ordered. He took a 5 days course. With that the bleeding was controlled. However his bleeding appears to be intermittently recurrent. He is still passing clots. It is affecting his quality of life and sex life. It is rather unusual for the bleeding to persist for this long after the pro cedure. He probably needs a cystoscopy to check things out. I can arrange for DDAVP to be given when the procedure is planned. PLAN: He has a follow-up visit with Dr. Krishnamurthy today. He will discuss it further with him, and let me know of the plan. He will return in one month for a follow up visit. He will keep me posted. Thanks, CC: Dr. Ferro. Dr. Garcia. (2) Von Willebrand disease Status: Acute - Time Spent With Patient Total time spent is greater than 50% in coordination of care (as documented) at patient's floor/unit and/or counseling patient: 15 - 24 minutes
--- NOTE | 2020-08-30 09:41 | MHC.HEMONC ---
Patient summary updated via televisit. Patient spoke with provider via telephone. Follow-up booked and mailed.
--- NOTE | 2020-10-16 09:22 | HO.HEMONCTE1 ---
[facility] Telehealth - Telehealth Location of Provider rendering services: [facility] OFFICE Location of Patient: HOME. Patient Identification confirmed using: Name, : Yes Telehealth Method: TELEPHONE. Patient verbally consented to treatment: YES Patient verbally consented to billing insurance company: Yes Patient informed of any privacy concerns related to visit: Yes Medical Summary - Medical Summary Date of Service: 10/16/20 Medical Summary: DIAGNOSIS: HEMATURIA. VON WILLEBRAND'S DISEASE. Interval History Interval history: This is a 40-year-old gentleman with whom a telephone visit was held. He tells me that he is feeling better. He still gets hematuria here in there and randomly. It is much less than before. He denies suprapubic pain or flank pain. No dysuria. No fever nor chills. He denies much fatigability. 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 That does tire him, at the end of the day. He denies any abdominal nor flank pain. No chest pain or trouble breathing. No abdominal pain nausea vomiting heartburn indigestion. His bowels are working without any gross blood in it. He enjoys a good appetite. He has gained weight. He is in good spirits. Rest of the review of systems is unremarkable. Previous History: He initially presented to Dr. Garcia for urge incontinence. He was diagnosed with BPH. He had a Laser procedure done on 06/12. According to him he did mention a history of BPH and that he required DDAVP prior to procedures. He thought he received it. He then developed hematuria. He had the Haq in for the 1st week or so. He thought that was normal. However a couple of weeks ago he noticed that the bleeding worse persistent and he was passing big clots. On July 03 he went to the emergency room. Here his labs revealed: CBC: WBC 9.1/HGB 15.4/HCT 45/PLT 451. UA revealed 3+ blood. The case was discussed with Dr. Childress. He was given a dose of DDAVP. He was sent home on Tranexamic acid 1300 mg q.6 hours for 5 days. With that the bleeding did slow down. However he is worried because his med ran out and the insurance would not cover it. His insurance has been covering only 5 days of the Tranexamic Acid. The bleeding would slow down but then would start back up after the 5 days are over. Review of Systems - Constitutional Reports no additional constitutional complaints, Reports lack of energy, Denies weight gain - Eyes Reports no additional eye complaints - ENT Reports no additional ear, nose, mouth, and throat complaints - Cardiovascular Reports no additional cardiovascular complaints - Respiratory Reports no additional respiratory complaints - Gastrointestinal Reports no additional gastrointestinal complaints - Genitourinary Genitourinary: Reports no additional male genitourinary complaints, Reports blood in urine - Musculoskeletal Reports no additional musculoskeletal complaints - Integumentary/Breasts Skin/Breast: Reports no additional skin complaints - Neurologic Reports no additional neurologic complaints - Psychiatric Reports no additional psychiatric complaints - Endocrine Reports no additional endocrine complaints - Hematologic/Lymphatic Reports no additional hematologic/lymphatic complaints - Allergic/Immunologic Reports no additional allergic/immunologic complaints Home Medications and Allergies Home Medications Medication Instructions Recorded Confirmed Type atorvastatin 80 mg PO DAILY 08/30/20 08/30/20 History cholecalciferol (vitamin D3) 100 mcg PO DAILY 08/30/20 08/30/20 History [Vitamin D3] dulaglutide [Trulicity] 0.75 mg SUBCUT QWEEK 08/30/20 08/30/20 History famotidine 40 mg PO BID 08/30/20 08/30/20 History metformin 1,000 mg PO BID 08/30/20 08/30/20 History oxybutynin chloride 15 mg PO DAILY 08/30/20 08/30/20 History tranexamic acid 1 mg PO DAILY 08/30/20 08/30/20 History Allergies Allergy/AdvReac Type Severity Reaction Status Date / Time cephalexin [From KEFLEX] Allergy Unknown HIVES Verified 08/30/20 08:53 latex [LATEX] Allergy Unknown RASH Verified 08/30/20 08:53 aspirin [ASA] AdvReac Unknown Verified 08/30/20 08:53 Exam Vital signs: Vital Signs Temp 97.8 F 07/19/20 10:35 Pulse 76 07/19/20 10:35 Resp 18 07/19/20 10:35 BP 124/65 07/19/20 10:35 Pulse Ox 97 07/19/20 10:35 Weight 105 kg Body Mass Index 33.2 - Constitutional Present: mild distress - Routine HEENT Exam Head: Present: normal inspection Eye: Present: normal appearance ENT: Present: mucous membranes moist - Routine Neck Exam Present: full ROM - Routine Respiratory Exam Present: CTAB - Routine Cardiovascular Exam Cardiovascular: Present: RRR, S1, S2 - Routine Abdominal Exam Present: soft, nontender - Routine Extremities Exam Present: nontender - Routine Back/Spine/Pelvis Exam Back/Spine: Present: full ROM - Routine Skin Exam Present: intact - Routine Neurological Exam Present: alert, oriented X3, moving all extremities - Detailed Neurological Exam: Coma Scale Eye Opening: Spontaneous (4) - Routine Psychiatric Exam Present: normal affect Data - Labs CBC & Chem 7: 07/19/20 11:35 07/19/20 11:35 Labs: 07/19/20 11:35 Complete Blood Count Auto Diff Routine Comprehensive Met. Panel Routine Factor 8 Prof (von Willebrand) Routine PTT [Partial Thromboplastin Time] Routine Prothrombin Time INR Routine Laboratory Last Values WBC 7.4 X10*3/uL (4.8-10.8) 07/19/20 11:35 RBC 4.45 X10*6/uL (4.60-5.80) L 07/19/20 11:35 Hgb 13.2 g/dl (14.0-18.0) L 07/19/20 11:35 Hct 40.2 % (42-52) L 07/19/20 11:35 MCV 90.3 fL (80-98) 07/19/20 11:35 MCH 29.7 pg (27.0-33.0) 07/19/20 11:35 MCHC 32.8 g/dl (31.0-36.0) 07/19/20 11:35 RDW 13.1 % (11.0-16.0) 07/19/20 11:35 Plt Count 407 X10*3/uL (160-400) H 07/19/20 11:35 MPV 10.1 fL (9.4-12.4) 07/19/20 11:35 Immature Gran % (Auto) 0.1 % (0.0-0.4) 07/19/20 11:35 Neut % (Auto) 56.4 % (45-73) 07/19/20 11:35 Lymph % (Auto) 28.5 % (20-40) 07/19/20 11:35 [place]imer % (Auto) 9.6 % (2-11) 07/19/20 11:35 Eos % (Auto) 4.7 % (0-4) H 07/19/20 11:35 Baso % (Auto) 0.7 % (0-2) 07/19/20 11:35 Lymph # (Auto) 2.1 X10*3/uL (1.2-4.9) 07/19/20 11:35 Latimer # (Auto) 0.7 X10*3/uL (0.1-1.2) 07/19/20 11:35 Eos # (Auto) 0.4 X10*3/uL (0.0-0.4) 07/19/20 11:35 Baso # (Auto) 0.1 X10*3/uL (0.0-0.2) 07/19/20 11:35 Abs Immat Gran (auto) 0.01 X10*3/uL (0.00-0.03) 07/19/20 11:35 Absolute Neuts (auto) 4.2 X10*3/uL (2.0-8.3) 07/19/20 11:35 Absolute Nucleated RBC 0.000 X10*3/uL (0.0-0.012) 07/19/20 11:35 Nucleated RBC % (auto) 0.0 /100WBC (0.0-0.2) 07/19/20 11:35 PT 12.4 SEC (10.8-13.0) 07/19/20 11:35 INR 1.0 (0.9-1.1) 07/19/20 11:35 APTT 39.8 SEC (24.1-38.0) H 07/19/20 11:35 vWF VIII Activity 51 % normal (50-180) 07/19/20 11:35 von Willebrand Antigen 32 % (50-217) L 07/19/20 11:35 vWF Multimeric Antigen see note 07/19/20 11:35 Ristocetin Cofac Assay <20 % NORMAL (42-200) L 07/19/20 11:35 Sodium 141 mmol/L (135-145) 07/19/20 11:35 Potassium 4.4 mmol/l (3.3-5.1) 07/19/20 11:35 Chloride 109 mmol/L (96-108) H 07/19/20 11:35 Carbon Dioxide 25 mmol/L (22-29) 07/19/20 11:35 Anion Gap 11 (12-20) L 07/19/20 11:35 BUN 15 mg/dL (9-16) 07/19/20 11:35 Creatinine 0.80 mg/dL (0.5-1.4) 07/19/20 11:35 Estim Creat Clear Calc 147.4 07/19/20 11:35 Estimated GFR > 60 07/19/20 11:35 Random Glucose 117 mg/dL (60-115) H D 07/19/20 11:35 Calcium 9.2 mg/dL (8.4-10.2) 07/19/20 11:35 Total Bilirubin 0.5 mg/dL (0.0-1.0) 07/19/20 11:35 AST 19 U/L (5-37) 07/19/20 11:35 ALT 34 U/L (0-40) 07/19/20 11:35 Alkaline Phosphatase 75 U/L (39-117) 07/19/20 11:35 Total Protein 6.6 g/dL (6.5-8.0) 07/19/20 11:35 Albumin 4.3 g/dL (3.5-5.0) 07/19/20 11:35 Progress Note: A/P (1) Von Willebrands disease Status: Acute Assessment and plan: PT: 12.4. PTT: 30.8. RCA: <20. F VIII Activity: 51. F VIII Antigen:32. This is a 40-year-old gentleman with a history of von Willebrand's disease. He underwent laser procedure on his prostate on June 12, without D DDAVP cover. Subsequently had issues with hematuria. This persisted and actually got worst, a few weeks ago, with him passing dark red big blood clots. He came to the emergency room July 03 was given a dose of DDAVP. Tranexamic acid was ordered. He took a 5 days course. With that the bleeding was controlled. His bleeding has improved significantly, however he still gets it intermittently. It is rather unusual for the bleeding to persist for this long after the procedure. He needs to have a cystoscopy to check things out. I can arrange for DDAVP to be given when the procedure is planned. PLAN: He has to set up a follow-up visit with Dr. Garcia. I offered to make an appointment but he said he will call so he can pick a time that is convenient. He will discuss it further with him, and let me know of the plan. He will return in 3 months for a follow up visit. He will keep me posted. Thanks, CC: Dr. Ferro. Dr. Garcia. (2) Von Willebrand disease Status: Acute - Time Spent With Patient Total time spent is greater than 50% in coordination of care (as documented) at patient's floor/unit and/or counseling patient: 15 - 24 minutes
--- NOTE | 2020-10-16 09:36 | MHC.HEMONC ---
Addendum entered by Chapis Gaona RN 10/16/20 09:38: follow up in 3 months. Original Note: Exam, patient to book follow up with Dr. Krishnamurthy
== END | disposition home or self-care (01) ==
LOC: HO.ONC 07-19 10:14
PROVIDERS: PCP Family Medicine; Visit Provider Internal Medicine Medical Oncology
DX: D68.0 Von Willebrand disease (principal); R31.9 Hematuria, unspecified; N40.0 Benign prostatic hyperplasia without lower urinary tract symptoms
CPT/HCPCS: 36415; 80053; 85025; 85240; 85246; 85610; 85730; 99204; 99214